=== PATIENT | female | born 1955 | race Hispanic/Latino ===

== ENCOUNTER 2024-11-03 08:09 | Emergency (ER) | payer MEDICARE ==
[~2024-11-03] VITALS: Ht 167.6 cm; Wt 90.7 kg
[~2024-11-03 08:09] MED LIST: ACETAMINOPHEN325 M1 PO; ATORVASTATIN CA10 MG PO; CEPHALEXIN500 MG PO; Calcium Carbonate PO; DAPAGLIFLOZIN; GABAPENTIN600 MG PO; METFORMIN HCL500 MG PO; MYRBETRIQ50 MG PO; OZEMPIC0.25 MG/02; TRINTELLIX10 MG PO; ULTRAM 50MG50 MG PO
[2024-11-03 08:38] LABS: BASOPHILS # (AUTO) 0.1 (0.0-0.1); BASOPHILS % 0.9 % (0.0-1.0); EOSINOPHILS # (AUTO) 0.3 (0.0-0.4); EOSINOPHILS % 4.3 % (0.0-6.0); HEMATOCRIT 43.1 % (34.2-44.1); HEMOGLOBIN 14.2 g/dL (12.0-16.0); LYMPHOCYTES # (AUTO) 3.2 (1.0-3.2); LYMPHOCYTES % 49.1 % (18.0-39.1); MEAN CORPUSCULAR HEMOGLOBIN 27.1 pg (28-32); MEAN CORPUSCULAR HGB CONC 32.9 g/dL (31-35); MEAN CORPUSCULAR VOLUME 82.3 fL (81-99); MONOCYTES # (AUTO) 0.5 (0.2-0.8); MONOCYTES % 7.5 % (4.4-11.3); NEUTROPHILS # (AUTO) 2.5 (2.1-6.9); PLATELET COUNT 206 x10e3/uL (140-360); RED BLOOD COUNT 5.24 x10e6/uL (3.6-5.1); RED CELL DISTRIBUTION WIDTH 14.3 % (11.7-14.4); WHITE BLOOD COUNT 6.44 x10e3/uL (4.8-10.8)
[2024-11-03 08:49] LABS: ALANINE AMINOTRANSFERASE 18 IU/L (0-55); ALBUMIN 4.2 g/dL (3.5-5.0); ALBUMIN/GLOBULIN RATIO 1.3 (0.8-2.0); ALKALINE PHOSPHATASE 72 IU/L (40-150); ANION GAP 17.1 mmol/L (8-16); BILIRUBIN,TOTAL 0.5 mg/dL (0.2-1.2); BLOOD UREA NITROGEN 11 mg/dL (7-26); BUN/CREATININE RATIO 13 (6-25); CALCIUM 9.4 mg/dL (8.4-10.2); CARBON DIOXIDE 19 mmol/L (22-29); CHLORIDE 108 mmol/L (98-107); CREATININE, SERUM 0.86 mg/dL (0.57-1.11); EST GLOMERULAR FILTRATION RATE 73 ML/MIN (>=60); GLUCOSE 149 mg/dL (74-118); POTASSIUM 3.1 mmol/L (3.5-5.1); SODIUM 141 mmol/L (136-145); TOTAL PROTEIN 7.5 g/dL (6.5-8.1)
[2024-11-03 09:20] LABS: TROPONIN I < 0.001 ng/mL (0-0.300)
[2024-11-03 10:36] VITALS: PULSE 89; RESP 20; TEMP 98.2; O2SAT 98
== END 2024-11-03 10:34 | disposition home or self-care (01) ==
LOC: ER 08:12
DX: R06.00 Dyspnea, unspecified (principal); R51.9 Headache, unspecified
CPT/HCPCS: 36415; 71045; 80053; 83880; 84484; 85025; 93005; 99284